=== PATIENT | female | born 1950 | race Caucasian/White ===

== ENCOUNTER 2018-09-15 16:39 | Emergency (ER) | payer BC, OTHER ==
[~2018-09-15] VITALS: Wt 77.3 kg
[2018-09-15 17:00] VITALS: BP 126/67; PULSE 77; RESP 18
--- NOTE | 2018-09-15 18:46 | ERD ---
ER Documentation Chief Complaint Chief Complaint R lower back pain since Mon 09/05; hx chr back pain+ kyphoplasty; no dysuria HPI 68-year-old female with history of chronic low back pain and kyphoplasty presents the ED complaining of pain in the right lower back times 1 week. Patient states the pain had a gradual onset, and is constant. The pain is worse with movement. Denies recent injury. Denies saddle paresthesia. Denies bowel or bladder dysfunction. Denies dysuria. Denies fever or chills. Denies radiation of the pain. ROS All systems reviewed and are negative except as per history of present illness. Medications Home Meds Active Scripts Methocarbamol* (Robaxin*) 750 Mg Tablet, 750 MG PO Q6H PRN for MUSCLE SPASMS, #20 TAB Prov:[facility] HYDE HISTOLOGY ASSISTANT 09/15/18 Allergies Allergies: Coded Allergies: No Known Allergy (Unverified , 09/15/18) PMhx/Soc History of Surgery: Yes (colonectomy) Hx Miscellaneous Medical Probl: Yes (colon cancer) Hx Alcohol Use: No Hx Substance Use: No Hx Tobacco Use: No Smoking Status: Never smoker Physical Exam Vitals Vital Signs Date Temp Pulse Resp B/P (MAP) Pulse Ox O2 O2 Flow FiO2 Time Delivery Rate 09/15/18 97.4 77 18 126/67 97 17:00 (86) Physical Exam General: Well-developed, well-nourished, conscious and coherent, in no distress Skin: Warm and dry without rash, good texture and turgor Head: Normocephalic without evidence of trauma Chest: Normal AP diameter. Good expansion without retractions. Nontender. Lungs are clear to auscultate bilaterally with good tidal volume Heart: Regular rate and rhythm. No murmur, rub, or gallops heard Back: Without spinal or CVA tenderness. Muscle spasm in the right gluteal region. Straight leg raise negative Extremities: Full range of motion. Good strength bilaterally. No erythema, ecchymosis, or edema. Peripheral pulses are intact. Sensation intact Neuro: Alert and oriented 4, GCS 15. Procedures/MDM Patient does not have any midline spinal tenderness. I doubt spinal fracture, subluxation, or disc herniation. I doubt spinal epidural abscess, cauda equina syndrome. Likely patient has a muscle spasm. Procedure note: Trigger point injection Trigger point injection performed by me. 10 mL of bupivacaine is injected into right gluteal region. Total number muscle groups injected: 1. Patient reports improvement of pain after the trigger point injection. Patient requests prescription of narcotic medications. Stating that she is unable to see her PCP for some time. I advised patient that I cannot prescribe narcotic medication for chronic pain. Patient appears well, stable for discharge and outpatient management. Medical decision making shared with patient and family. Education provided to patient and family. Patient and family expressed understanding of the plan. Medications on discharge: Robaxin. Follow-up: Primary care provider in 2-3 days or return to ED if worse. Disclaimer: Inadvertent spelling and grammatical errors are likely due to EHR/dictation software use and do not reflect on the overall quality of patient care. Also, please note that the electronic time recorded on this note does not necessarily reflect the actual time of the patient encounter. Departure Diagnosis: Primary Impression: Back pain Condition: Stable [facility] HYDE NP Sep 15, 2018 18:46
[2018-09-15] MEDS ORDERED: METH750T93 PO (18:57)
== END 2018-09-15 19:14 | disposition home or self-care (01) ==
LOC: FTE 16:39
DX: M54.5 Low back pain (principal); R40.2412 Glasgow coma scale score 13-15, at arrival to emergency department; Z85.038 Personal history of other malignant neoplasm of large intestine